=== PATIENT | female | born 2000 | race Caucasian/White ===

== ENCOUNTER 2019-09-16 09:08 | Outpatient (CLI) | payer BC, SELFPAY ==
[2019-09-16 09:24] LABS: Hematocrit 42.5 % (37.0-47.0); Hemoglobin 14.2 g/dL (12.0-15.0); Mean Corpuscular HGB Conc 33.4 g/dl (32-36); Mean Corpuscular Hemoglobin 29.7 pg (26-34); Mean Corpuscular Volume 88.9 fl (80-100); Mean Platelet Volume 9.5 fl (7.4-10.4); Platelet Count Result 409 k/mm3 (150-375); Red Blood Count 4.78 M/mm3 (4.2-5.4); Red Cell Distribution Width 12.3 % (11.5-14.5)
[2019-09-16 11:01] LABS: Iron 71 ug/dL (37-170)
[2019-09-16 11:10] LABS: Percent Iron Saturation 21 % (20-50)
== END 2019-09-16 09:09 | disposition home or self-care (01) ==
LOC: ANHLAB 09:09
PROVIDERS: PCP Pediatrics; Visit Provider Internal Medicine Hematology & Oncology
DX: D50.0 Iron deficiency anemia secondary to blood loss (chronic) (principal)
CPT/HCPCS: 36415; 82728; 83540; 83550; 85027

== ENCOUNTER 2020-01-14 14:38 | Emergency (ER) | payer OTHER, BC, SELFPAY ==
[2020-01-14 14:41] VITALS: BP 141/90; PULSE 100; RESP 19; TEMP 36.8; O2SAT 100
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
== END 2020-01-14 16:11 | disposition home or self-care (01) ==
PROVIDERS: Emergency Provider General Practice; PCP Pediatrics
DX: S16.1XXA Strain of muscle, fascia and tendon at neck level, initial encounter (principal); S29.012A Strain of muscle and tendon of back wall of thorax, initial encounter; F41.9 Anxiety disorder, unspecified; F32.9 Major depressive disorder, single episode, unspecified; V49.60XA Unspecified car occupant injured in collision with unspecified motor vehicles in traffic accident, initial encounter
CPT/HCPCS: 99283

== ENCOUNTER 2020-03-03 10:04 | Outpatient (CLI) | payer BC, SELFPAY ==
[2020-03-03 10:41] LABS: Basophils Absolute Auto 0.1 K/mm3 (0.0-0.1); Basophils Percent Auto 0.7 % (0.2-1.2); Eosinophils Absolute Auto 0.1 K/mm3 (0-0.3); Hemoglobin 14.4 g/dL (12.0-15.0); Immature Granulocyte Absolute 0.03 K/mm3 (0.00-0.031); Immature Granulocyte Percent A 0.3 % (0-0.5); Lymphocytes Absolute Auto 2.86 K/mm3 (0.9-3.2); Lymphocytes Percent Auto 27.2 % (18.3-44.2); Mean Corpuscular HGB Conc 32.7 g/dl (32-36); Mean Corpuscular Hemoglobin 29.1 pg (26-34); Mean Corpuscular Volume 89.1 fl (80-100); Mean Platelet Volume 9.4 fl (7.4-10.4); Monocytes Absolute Auto 0.5 K/mm3 (0.1-0.6); Monocytes Percent Auto 5.1 % (2.6-8.5); Neutrophils Absolute Auto 6.9 K/mm3 (1.3-6.7); Neutrophils Percent Auto 65.7 % (45.5-73.1); Platelet Count Result 435 k/mm3 (150-375); Red Blood Count 4.94 M/mm3 (4.2-5.4); Red Cell Distribution Width 12.3 % (11.5-14.5); White Blood Count 10.5 K/mm3 (4.5-10.0)
[2020-03-03 15:25] LABS: Iron 112 ug/dL (37-170)
[2020-03-03 15:31] LABS: Anion Gap 10 mmol/L (8-16); Blood Urea Nitrogen 13 mg/dL (7-17); Calcium 9.7 mg/dL (8.4-10.2); Carbon Dioxide 26 mmol/L (22-30); Chloride 101 mmol/L (98-107); Estimated Glomerular Filt Rate > 60; Glucose 88 mg/dL (65-105); Potassium 4.3 mmol/L (3.4-5.0); Sodium 137 mmol/L (137-145)
[2020-03-03 15:35] LABS: Percent Iron Saturation 29 % (20-50)
[2020-03-03 16:32] LABS: Folic Acid 13.3 ng/mL (2.76->20)
== END 2020-03-03 10:05 | disposition home or self-care (01) ==
LOC: ANHLAB 10:06
PROVIDERS: PCP Pediatrics; Visit Provider Internal Medicine Hematology & Oncology
DX: D50.0 Iron deficiency anemia secondary to blood loss (chronic) (principal)
CPT/HCPCS: 36415; 80048; 82607; 82728; 82746; 83540; 83550; 84443; 85025

== ENCOUNTER 2020-09-07 11:53 | Outpatient (CLI) | payer BC, SELFPAY ==
[2020-09-07 12:05] LABS: Basophils Absolute Auto 0.1 K/mm3 (0.0-0.1); Basophils Percent Auto 0.7 % (0.2-1.2); Eosinophils Absolute Auto 0.1 K/mm3 (0-0.3); Eosinophils Percent Auto 1.5 % (0-4.4); Hematocrit 43.9 % (37.0-47.0); Hemoglobin 14.3 g/dL (12.0-15.0); Immature Granulocyte Absolute 0.02 K/mm3 (0.00-0.031); Immature Granulocyte Percent A 0.2 % (0-0.5); Lymphocytes Absolute Auto 2.68 K/mm3 (0.9-3.2); Lymphocytes Percent Auto 30.5 % (18.3-44.2); Mean Corpuscular HGB Conc 32.6 g/dl (32-36); Mean Corpuscular Hemoglobin 28.9 pg (26-34); Mean Corpuscular Volume 88.7 fl (80-100); Mean Platelet Volume 9.5 fl (7.4-10.4); Monocytes Absolute Auto 0.3 K/mm3 (0.1-0.6); Monocytes Percent Auto 3.5 % (2.6-8.5); Neutrophils Absolute Auto 5.6 K/mm3 (1.3-6.7); Neutrophils Percent Auto 63.6 % (45.5-73.1); Platelet Count Result 410 k/mm3 (150-375); Red Blood Count 4.95 M/mm3 (4.2-5.4); Red Cell Distribution Width 12.2 % (11.5-14.5); White Blood Count 8.8 K/mm3 (4.5-10.0)
[2020-09-07 12:36] LABS: Iron 84 ug/dL (37-170)
[2020-09-07 12:49] LABS: Percent Iron Saturation 25 % (20-50)
== END 2020-09-07 11:54 | disposition home or self-care (01) ==
LOC: ANHLAB 11:55
PROVIDERS: PCP Pediatrics; Visit Provider Internal Medicine Hematology & Oncology
DX: D50.0 Iron deficiency anemia secondary to blood loss (chronic) (principal)
CPT/HCPCS: 36415; 82607; 82728; 82746; 83540; 83550; 85025

== ENCOUNTER 2021-03-01 09:21 | Outpatient (CLI) | payer BC, SELFPAY ==
[2021-03-01 09:38] LABS: Basophils Absolute Auto 0.1 K/mm3 (0.0-0.1); Basophils Percent Auto 0.8 % (0.2-1.2); Eosinophils Absolute Auto 0.1 K/mm3 (0-0.3); Eosinophils Percent Auto 1.2 % (0-4.4); Hematocrit 42.1 % (37.0-47.0); Immature Granulocyte Absolute 0.03 K/mm3 (0.00-0.031); Immature Granulocyte Percent A 0.3 % (0-0.5); Lymphocytes Absolute Auto 2.83 K/mm3 (0.9-3.2); Lymphocytes Percent Auto 32.1 % (18.3-44.2); Mean Corpuscular HGB Conc 33.3 g/dl (32-36); Mean Corpuscular Volume 87.3 fl (80-100); Mean Platelet Volume 9.5 fl (7.4-10.4); Monocytes Absolute Auto 0.5 K/mm3 (0.1-0.6); Monocytes Percent Auto 5.2 % (2.6-8.5); Neutrophils Absolute Auto 5.3 K/mm3 (1.3-6.7); Neutrophils Percent Auto 60.4 % (45.5-73.1); Platelet Count Result 380 k/mm3 (150-375); Red Blood Count 4.82 M/mm3 (4.2-5.4); Red Cell Distribution Width 12.4 % (11.5-14.5); White Blood Count 8.8 K/mm3 (4.5-10.0)
== END 2021-03-01 09:22 | disposition home or self-care (01) ==
LOC: ANHLAB 09:25
PROVIDERS: PCP Pediatrics; Visit Provider Internal Medicine Hematology & Oncology
DX: D50.0 Iron deficiency anemia secondary to blood loss (chronic) (principal)
CPT/HCPCS: 36415; 85025

== ENCOUNTER 2021-12-21 11:01 | Outpatient (CLI) | payer OTHER, SELFPAY ==
[2021-12-21 11:24] LABS: Basophils Absolute Auto 0.1 K/mm3 (0.0-0.1); Basophils Percent Auto 0.7 % (0.2-1.2); Eosinophils Absolute Auto 0.2 K/mm3 (0-0.3); Eosinophils Percent Auto 1.5 % (0-4.4); Hematocrit 40.9 % (37.0-47.0); Hemoglobin 13.2 g/dL (12.0-15.0); Immature Granulocyte Absolute 0.02 K/mm3 (0.00-0.031); Immature Granulocyte Percent A 0.2 % (0-0.5); Lymphocytes Absolute Auto 4.49 K/mm3 (0.9-3.2); Lymphocytes Percent Auto 41.5 % (18.3-44.2); Mean Corpuscular HGB Conc 32.3 g/dl (32-36); Mean Corpuscular Hemoglobin 27.9 pg (26-34); Mean Corpuscular Volume 86.5 fl (80-100); Mean Platelet Volume 10.4 fl (7.4-10.4); Monocytes Absolute Auto 0.5 K/mm3 (0.1-0.6); Monocytes Percent Auto 4.6 % (2.6-8.5); Neutrophils Absolute Auto 5.6 K/mm3 (1.3-6.7); Neutrophils Percent Auto 51.5 % (45.5-73.1); Platelet Count Result 377 k/mm3 (150-375); Red Blood Count 4.73 M/mm3 (4.2-5.4); Red Cell Distribution Width 12.8 % (11.5-14.5); White Blood Count 10.8 K/mm3 (4.5-10.0)
== END 2021-12-21 11:02 | disposition home or self-care (01) ==
LOC: ANHLAB 11:02
PROVIDERS: PCP Pediatrics; Visit Provider Internal Medicine Hematology & Oncology
DX: D50.0 Iron deficiency anemia secondary to blood loss (chronic) (principal)
CPT/HCPCS: 36415; 85025

== ENCOUNTER 2023-04-12 14:15 | Outpatient (CLI) | payer OTHER, SELFPAY ==
[2023-04-12 14:32] LABS: Basophils Absolute Auto 0.1 K/mm3 (0.0-0.1); Basophils Percent Auto 0.7 % (0.2-1.2); Eosinophils Absolute Auto 0.3 K/mm3 (0-0.3); Eosinophils Percent Auto 4.2 % (0-4.4); Hematocrit 38.1 % (37.0-47.0); Hemoglobin 12.4 g/dL (12.0-15.0); Immature Granulocyte Absolute 0.02 K/mm3 (0.00-0.031); Immature Granulocyte Percent A 0.2 % (0-0.5); Lymphocytes Absolute Auto 2.91 K/mm3 (0.9-3.2); Mean Corpuscular HGB Conc 32.5 g/dl (32-36); Mean Platelet Volume 9.6 fl (7.4-10.4); Monocytes Absolute Auto 0.5 K/mm3 (0.1-0.6); Monocytes Percent Auto 5.7 % (2.6-8.5); Neutrophils Absolute Auto 4.3 K/mm3 (1.3-6.7); Neutrophils Percent Auto 53.2 % (45.5-73.1); Platelet Count Result 363 k/mm3 (150-375); Red Blood Count 4.14 M/mm3 (4.2-5.4); Red Cell Distribution Width 12.8 % (11.5-14.5); White Blood Count 8.1 K/mm3 (4.5-10.0)
[2023-04-12 15:17] LABS: D Dimer 0.29 ug/mL (<0.48)
== END 2023-04-12 14:16 | disposition home or self-care (01) ==
PROVIDERS: PCP Physician Assistant Medical; Visit Provider Internal Medicine Hematology & Oncology
DX: D50.0 Iron deficiency anemia secondary to blood loss (chronic) (principal)
CPT/HCPCS: 36415; 85025; 85380